=== PATIENT | female | born 1990 | race Caucasian/White ===

== ENCOUNTER 2017-04-17 17:13 | Emergency (ER) | payer OTHER ==
[~2017-04-17] VITALS: Ht 170.2 cm; Wt 74.5 kg
[~2017-04-17 17:13] MED LIST: PRENAT PO
[2017-04-17 17:32] VITALS: Ht 170.2 cm; Wt 74.5 kg
--- NOTE | 2017-04-17 17:47 | ERA ---
ER Documentation Chief Complaint Date/Time DATE: 04/17/17 TIME: 17:47 Chief Complaint COUGH, CONGESTION & FATIGUE [id number] HPI The patient is a 26-year-old female, presenting with sore throat, generalized weakness, bilateral ear pain for the last few days, she was already seen by a doctor at the urgent care who started her on amoxicillin and prednisone for the last 5 days with good response. She denies neck pain, chest pain, dyspnea, abdominal pain, vomiting, dysuria, diarrhea. She does not smoke nor drink Past medical history/surgical history: None ROS All systems reviewed and are negative except as per history of present illness. Medications Home Meds Reported Medications Multivit/Min/Fol Ac/Iron/Pren* ( S*) 1 Tab Tab, 1 TAB PO DAILY, TAB 03/27/16 Allergies Allergies: Coded Allergies: No Known Allergy (Unverified , 01/26/16) PMhx/Soc History of Surgery: No Anesthesia Reaction: No Hx Neurological Disorder: No Hx Respiratory Disorders: No Hx Cardiac Disorders: No Hx Psychiatric Problems: No Hx Miscellaneous Medical Probl: No Hx Alcohol Use: No Hx Substance Use: No Hx Tobacco Use: No Physical Exam Vitals Vital Signs Date Time Temp Pulse Resp B/P Pulse Ox O2 Delivery O2 Flow Rate FiO2 04/17/17 17:32 98.7 87 20 139/87 98 Physical Exam Const: No acute distress. Head: Atraumatic. Eyes: Normal Conjunctiva. ENT: Normal External Ears, Nose and Mouth.Bilateral tympanic membranes and oropharynx are within normal limits Neck: Full range of motion. No meningismus. Resp: Clear to auscultation bilaterally. Cardio: Regular rate and rhythm. Abd: Soft, non distended, normal bowel sounds, non tender. Skin: No petechiae or rashes. Back: No midline or flank tenderness. Ext: No cyanosis, or edema. Neur: Awake and alert. No focal deficit Psych: Normal Mood and Affect. Procedures/MDM MEDICAL MAKING DECISION: The patient is a 36-year-old female, presenting with acute viral syndrome. She is well and stable for outpatient follow-up The differential diagnoses considered include but are not limited to pneumonia, cystitis, influenza, anxiety Departure Diagnosis: Primary Impression: Viral syndrome Condition: Good Comments I discussed the findings with the patient. I advised the patient to follow-up with the primary physician in about 1-2 days, sooner if needed and return if any concern. The patient's blood pressure was elevated (>120/80) but appears stable without evidence of hypertension emergency or urgency. The patient was counseled about the risks of hypertension and urged to pursue outpatient monitoring and therapy within a week with their primary care physician. TOMI BALDERAS MD Apr 17, 2017 17:47
== END 2017-04-17 18:05 | disposition home or self-care (01) ==
LOC: FTE 17:13
DX: B34.9 Viral infection, unspecified (principal)
CPT/HCPCS: 99282

== ENCOUNTER 2018-01-24 13:13 | Outpatient (CLI) | END 2018-01-24 15:05 | disposition home or self-care (01) ==

== ENCOUNTER 2018-01-24 15:20 | Emergency (ER) | END 2018-01-24 18:47 | disposition home or self-care (01) ==